=== PATIENT | male | born 1990 | race African-American/Black ===

== ENCOUNTER 2019-03-01 11:30 | Emergency (ER) | payer MEDICAID ==
[~2019-03-01] VITALS: Ht 170.2 cm; Wt 86.0 kg
[2019-03-01 11:33] VITALS: BP 132/81
== END 2019-03-01 11:45 | disposition left against medical advice (07) ==
LOC: ER 11:30
DX: R53.1 Weakness (principal); Z53.21 Procedure and treatment not carried out due to patient leaving prior to being seen by health care provider
CPT/HCPCS: 99283

== ENCOUNTER 2019-03-02 09:52 | Emergency (ER) | payer MEDICAID ==
[~2019-03-02] VITALS: Ht 170.2 cm; Wt 95.0 kg
[2019-03-02] MEDS ORDERED: KETOROLAC 30MG/ML VIAL IM ONE (12:15)
[2019-03-02] MEDS ORDERED: NAPROXEN 250MG TABLET PO ONE (12:30)
[2019-03-02 13:46] VITALS: BP 130/78
== END 2019-03-02 13:44 | disposition home or self-care (01) ==
LOC: ER 09:52
DX: M54.9 Dorsalgia, unspecified (principal); F41.9 Anxiety disorder, unspecified
CPT/HCPCS: 99282; J1885